=== PATIENT | female | born 1990 | race Caucasian/White ===

== ENCOUNTER 2019-03-12 10:59 | Emergency (ER) | payer OTHER, SELFPAY ==
[2019-03-12 11:00] VITALS: BP 110/59; PULSE 82; RESP 16; TEMP 37.1; O2SAT 99; BMI 18.3
--- NOTE | 2019-03-12 11:23 | ED.DCSUM_ITS ---
History of Present Illness Informant: Patient, Significant Other - Abdominal Pain/Flank Pain Onset: Weeks - 1 Context: Gradual Onset Timing: Continuous Quality: Burning Location: Epigastric, RUQ Current Severity: Moderate Maximum Severity: Severe Worsened by: Food Relieved by: Nothing - Nausea/Vomiting/Emesis GI Symptom: Nausea, Vomiting Onset: Today Quality: Nonbilious Severity: Moderate Episodes: 1 Associated Symptoms: Frequency. Negative for: Dysuria, Hematuria, Urgency LMP: Narrative: 28-year-old female currently 32 weeks G3, P2 presents to the emergency department with abdominal pain nausea and vomiting. Patient has been having some epigastric and right upper quadrant pain for the past 1 week. Worse every time she eats. She has had 1 or 2 episodes of vomiting per day now for the past 1 week. She has not had a fever. She is not short of breath. She has no vaginal bleeding or discharge. She is not having any lower abdominal pain. She has not had any difficulties with this . She only has had nausea and vomiting during first trimester of her previous 2 pregnancies as well as this 1. A year and a half ago she was diagnosed with cholelithiasis and gallstones and was supposed to have surgery to remove her gallbladder but refused surgery at that time. Prior similar symptoms: Yes Recent Illness/Hospitalization: No <Karlos Grimaldo - Last Filed: 03/12/19 14:09> <Julio C Houston - Last Filed: 03/12/19 17:20> Chief Complaint: Nausea/Vomiting Past Medical History Prior records reviewed: Yes Past Medical History: None Surgical History: no surgical history Lives: With Family Smoking Status: Never smoker - Family History Maternal Family History: Reports: No pertinent history <Karlos Grimaldo - Last Filed: 03/12/19 14:09> <Julio C Houston - Last Filed: 03/12/19 17:20> - Allergies and Home Meds Allergies/Adverse Reactions: Allergies Penicillins Allergy (Verified 03/12/19 12:03) Hives Primary Care Physician: Rudolph Mckenna MD [Primary Care Provider] - Review of Systems All systems negative except as indicated General: Denies: Chills, Fever Cardiovascular: Denies: Chest pain Gastrointestinal: Reports: Abdominal pain, Nausea, Vomiting <Karlos Grimaldo - Last Filed: 03/12/19 14:09> Physical Exam Vital Signs/Narrative: Vital Signs Temp Pulse Resp BP Pulse Ox 03/12/19 11:00 98.8 F 82 16 110/59 L 99 Inital Vital Signs reviewed: Yes General: Well nourished, Well developed, No Acute Distress Head: Normocephalic, Atraumatic Eyes: Perrl, EOMI ENT: Moist mucous membranes Neck: Supple, Nontender Cardiovascular: Regular rate, Regular rhythm, No murmurs Respiratory: No distress, CTA bilaterally, Chest nontender Abdomen: Nontender - Gravid uterus, Nondistended, Normal bowel sounds, No masses Back: Nontender, Normal Inspection Extremities: Nontender, No edema Skin: Normal color, No rash Neurological: Alert, Oriented x3 <Karlos Grimaldo - Last Filed: 03/12/19 14:09> Vital Signs/Narrative: Vital Signs Pulse Resp BP Pulse Ox 03/12/19 14:27 59 L 16 124/67 H 98 <Julio C Houston - Last Filed: 03/12/19 17:20> Diagnostic/Tx/Re-eval US: RUQ - gallstones. unchanged from previous. no miller sign. - Medical Decision Making Patient refused antiemetics or Pepcid. Heart tones were normal. laboratory work-up including CBC, CMP and lipase was unremarkable. Her urinalysis was negative for infection. Right upper quadrant ultrasound showed gallstones, no Miller sign, no pericholecystic fluid, no dilation of bile duct, unchanged from her previous right upper quadrant ultrasound 1.5 years ago. Repeat evaluation patient tolerating by mouth. Abdominal exam soft nontender. Discussed with her that this is likely GERD related to her . We will place her on Pepcid. Discussed dietary modifications. Advised to follow-up with Dr. Pack who she is seen in the past. Return precautions to the emergency department were reviewed. Patient voiced understanding. Patient will be discharged home. <Karlos Grimaldo - Last Filed: 03/12/19 14:09> - Medical Decision Making I supervised the PA and have performed my own pertinent history and physical. Results and treatment plan were discussed. HPI: Patient reports that she is in her third trimester. She has a history of gallstones. She has had epigastric and right upper quadrant pain for approximately 1 week. She reports that this occurs when she eats. However, she reports that it begins as soon as she eats. States that she has not had any nausea or vomiting. No fever or chills. No vaginal bleeding or discharge. Normal movement. PE: Abdomen: Gravid uterus. Soft, mild epigastric tenderness, no right upper quadrant tenderness or Miller sign, normal bowel sounds. No guarding, rebound, or peritoneal signs. Emergency Department course: Abnormal Lab Results 03/12/19 03/12/19 03/12/19 11:27 11:27 11:41 WBC 5.5 RBC 3.59 L Hgb 11.8 L Hct 34.9 L MCV 97.2 MCH 32.9 H MCHC 33.8 RDW Std Deviation 47.1 H RDW Coeff of [place] 13.1 Plt Count 165 MPV 10.4 Immature Gran % (Auto) 0.500 Neut % (Auto) 76.9 H Lymph % (Auto) 16.0 L [place] % (Auto) 5.3 Eos % (Auto) 0.9 Baso % (Auto) 0.4 Absolute Neuts (auto) 4.2 Absolute Lymphs (auto) 0.88 Nucleated RBC % 0 Sodium 138 Potassium 3.6 Chloride 107 Carbon Dioxide 29.0 Anion Gap 2 L BUN 11 Creatinine 0.47 L Estim Creat Clear Calc 136.54 Est GFR (MDRD) Af Amer 200 Est GFR (MDRD) Non-Af 165 BUN/Creatinine Ratio 23.2 H Glucose 71 L Calcium 8.2 L Total Bilirubin 0.70 AST 32 ALT 64 H Alkaline Phosphatase 61 Total Protein 6.3 L Albumin 2.9 L Globulin 3.4 Albumin/Globulin Ratio 0.9 Lipase 79 Urine Color Yellow Urine Clarity Clear Urine pH 7.0 Ur Specific [place] 1.010 Urine Protein Negative Urine Glucose (UA) Normal Urine Ketones 5 H Urine Occult Blood Negative Urine Nitrite Negative Urine Bilirubin Negative Urine Urobilinogen Normal Ur Leukocyte Esterase 25 H Urine RBC 0 SEEN Urine WBC 0 SEEN Ur Squamous Epith Cells 0 SEEN Urine Bacteria 0 SEEN Urine Mucus 0 SEEN Clinical Impression(s) from Imaging Studies Gallbladder Ultrasound 03/12/19 11:52 IMPRESSION: 1. Multiple gallstones with negative sonographic Miller sign and no pericholecystic edema. These are unchanged when compared to 07/18/2017. 2. Mild right hydronephrosis most likely -induced. 3. No suspicious acute abnormality in the right upper quadrant of the abdomen. 4. No significant interval change when compared to 07/18/2017 Electronically Signed: Kamran Herring MD at 13:47 EDT , Service support , Patient refused nausea or pain medications. She was given Pepcid p.o. Treatment Plan: Patient's history is certainly atypical for symptomatic cholelithiasis. Her history is more consistent with gastritis. Given her she will be placed on Pepcid. Instructed to follow-up with Dr. Kapoor in 1 week for further evaluation and treatment. Return to the emergency department for any worsening symptoms. This note was generated with [employer] dictation software. It may contain incorrect words, spelling, and punctuation that were not noted in review of the chart prior to signing. <Julio C [place] - Last Filed: 03/12/19 17:20> ED Disposition <Karlos Grimaldo - Last Filed: 03/12/19 14:09> <Julio C [place] - Last Filed: 03/12/19 17:20> - Plan for ED Patient: Disposition: Home or Assisted Living Diagnosis: Abdominal pain during , GERD (gastroesophageal reflux disease) Instructions: Gastroesophageal Reflux Disease (GERD) Prescriptions: Famotidine [Pepcid] 40 mg PO BID #60 tab Prescription Printed Referrals: Rudolph Mckenna MD [Primary Care Provider] -
[2019-03-12 11:40] LABS: Absolute Lymphocyte Count 0.88 X10^3/uL (0.83-4.51); Absolute Neutrophil Count 4.2 X10^3/uL (2.0-7.7); Basophil# 0.02 X10^3/uL; Basophil% 0.4 % (0-1); Eosinophil# 0.05 X10^3/uL; Eosinophils% 0.9 % (0-5); Hematocrit 34.9 % (37-47); Hemoglobin 11.8 g/dL (12.0-15.0); Lymphocyte # 0.88 X10^3/ul (4.0); Mean Corp Hgb Conc 33.8 g/dL (32-36); Mean Corpuscular Hgb 32.9 pg (27.0-32.0); Mean Corpuscular Volume 97.2 fL (81-99); Mean Platelet Vol. 10.4 fl (6.2-12.0); Monocyte# 0.29 X10^3/uL; Monocyte% 5.3 % (0-10); NRBC Flagged by Analyzer 0 % (0-5); Neutrophil # 4.24 X10^3/uL (2.7-7.7); Neutrophil % 76.9 % (47-70); Platelet Count 165 K/mm3 (150-450); RBC Distribution Width CV 13.1 % (11.6-14.6); RBC Distribution Width SD 47.1 fl (35.1-43.9); Red Blood Count 3.59 M/mm3 (4.2-5.4); White Blood Count 5.5 K/mm3 (4.4-11.0)
[2019-03-12] MEDS: 0.9% Normal Saline 1,000 ML 1000 ML IV (11:40)
[2019-03-12 11:48] LABS: Bacteria 0 SEEN /hpf (None Seen); Mucous, Urine 0 SEEN /hpf (<or=2+); Red Blood Cells-Urine 0 SEEN /hpf (0-5); Squamous Epithelial Cells - UA 0 SEEN /hpf (5-10); White Blood Cells 0 SEEN /hpf (0-5)
--- NOTE | 2019-03-12 11:52 | US_ITS ---
STUDY: ABDOMINAL ULTRASOUND - RIGHT UPPER QUADRANT REASON FOR VISIT: Female, 28 years old. Right upper quadrant pain. Patient is . TECHNIQUE: Ultrasound evaluation of the right upper quadrant was performed with real-time and static tan-scale imaging. TECHNICAL QUALITY: Adequate. COMPARISON: 07/18/2017. FINDINGS: Liver: The liver measures 13.6 cm. There is normal echogenicity of the liver. The bile ducts are within normal limits. There is hepatic color flow. The direction of portal flow is hepatopetal. There is no demonstrated mass lesion. Gallbladder: Normal distended gallbladder. The gallbladder wall measures 2.1 mm. There is a negative sonographic Miller's sign. There is no pericholecystic fluid. There are multiple gallstones with strong distal acoustic shadowing. They were present previously. Common Bile Duct (C.B.D.): The common bile duct measures 2.2 mm. Pancreas: Normal size of the head, body and tail of the pancreas. There is normal echogenicity of the pancreas. There is no demonstrated pancreatic mass or cyst. The pancreatic duct is not dilated. Right Kidney: Normal size of the right kidney. The right kidney measures 10.8 x 5.2 x 4.8 cm. Normal renal cortex. The right cortex measures 1.4 cm. There is no demonstrated renal mass or cyst. There is mild hydronephrosis. This is most likely -induced. US/Gallbladder IMPRESSION: 1. Multiple gallstones with negative sonographic Miller sign and no pericholecystic edema. These are unchanged when compared to 07/18/2017. 2. Mild right hydronephrosis most likely -induced. 3. No suspicious acute abnormality in the right upper quadrant of the abdomen. 4. No significant interval change when compared to 07/18/2017 Electronically Signed: Kamran Herring MD at 13:47 EDT , Service support ,
[2019-03-12 11:53] LABS: Color, Urine Yellow (Yellow); Glucose, Dipstick Normal (Normal); Ketone-Dipstick 5 mg/dl (Negative); Leukocyte Esterase-Dipstick 25 /ul (Negative); Nitrite-Dipstick Negative (Negative); Occult Blood-Urine Negative /ul (Negative); Protein-Dipstick Negative (Negative); Urine Bilirubin Dipstick Negative (Negative); Urine Clarity Clear (Clear); Urine Urobilinogen Normal (Normal)
[2019-03-12 11:59] LABS: ALB/GLOB Ratio 0.9 RATIO (0.9-2.4); AST(SGOT) 32 U/L (15-37); Alanine Aminotransfer ALT/SGPT 64 U/L (13-56); Albumin, Serum 2.9 g/dL (3.2-5.0); Alkaline Phosphatase 61 U/L (45-117); Anion Gap 2 (5-15); BUN 11 mg/dL (7-18); BUN/Creat Ratio 23.2 RATIO (10-20); Calcium,Total 8.2 mg/dL (8.5-10.1); Chloride 107 mmol/L (98-107); Creatinine, Serum 0.47 mg/dL (0.55-1.02); EST Glomerular Filtration Rate 165 mL/min (>60); Est Glom Filt Rate - Afr Amer 200 mL/min (>60); Estimated Creatinine Clearance 136.54 ml/min; Globulin 3.4 g/dL (2.2-4.2); Glucose 71 mg/dL (74-106); Lipase 79 U/L (73-393); Potassium 3.6 mmol/L (3.5-5.1); Protein, Total 6.3 g/dL (6.4-8.2); Sodium Level 138 mmol/L (136-145)
[2019-03-12 14:27] VITALS: BP 124/67; PULSE 59; RESP 16; O2SAT 98
[2019-03-12] MEDS: Famotidine 20 MG Tablet 40 MG PO (14:27)
== END 2019-03-12 14:28 | disposition home or self-care (01) ==
PROVIDERS: Emergency Provider Physician Assistant Medical; Family Provider Family Medicine; PCP Family Medicine
DX: O99.613 Diseases of the digestive system complicating pregnancy, third trimester (principal); K21.9 Gastro-esophageal reflux disease without esophagitis; O26.893 Other specified pregnancy related conditions, third trimester; R10.13 Epigastric pain; R10.11 Right upper quadrant pain; O26.613 Liver and biliary tract disorders in pregnancy, third trimester; K80.20 Calculus of gallbladder without cholecystitis without obstruction; Z3A.32 32 weeks gestation of pregnancy
CPT/HCPCS: 76705; 80053; 81001; 83690; 85025; 96360; 99284; J7030